=== PATIENT | male | born 1990 | race Caucasian/White ===

== ENCOUNTER 2016-09-06 19:11 | Emergency (ER) | payer BC ==
--- NOTE | 2016-09-06 20:51 | ED ORDER SUMMARY ---
..... Patient: MARGI LINN OrderSheet [facility] VisitID: [id number] [address] [place] [address] 26y, M Registration Date/Time: 09/06/2016 ORDER SHEET Weight: 117.9 kg (stated) Allergies: No Known Drug Allergy GENERAL ORDERS: Rapid Influenza Screen (Nasal Pharyngeal) (INFORMATION ASSURANCE ENGINEER swab) Urgent (20:13 09/06/2016 Shaista Fields verbal order read back to Can Mckeon) (20:22 [facility] ER Tech1) MEDICATION ORDERS: IV FLUIDS: ORDER SHEET NOTES: [Electronically signed by Ronel GrNOctavioPOctavio (21:35 09/06/2016)] [Electronically signed by Ayala Ding R.N. (23:46 09/06/2016)] [Electronically locked/signed by Ayala Ding R.N. (23:46 09/06/2016)]
--- NOTE | 2016-09-06 20:51 | ED CLINICAL REPORT ---
Clinical Report - Physicians/Mid Levels [facility] [address] [place] [address] 09/06/2016 19:14 Patient: MARGI LINN Time Seen: 20:14; initial patient contact, initial documentation, patient care assumed. Arrived- By private vehicle. Historian- patient. HISTORY OF PRESENT ILLNESS Chief Complaint: FEVER, MUSCLE ACHES and "FLU". This started yesterday and is still present. The illness is described as moderate. The patient has had a cough, nasal congestion, sinus pressure, fever of 101 F and muscle aches. He has had a nasal discharge. He has had scant amounts of thin, clear, yellow, white sputum. No difficulty breathing, chest discomfort, sore throat, sinus drainage or ear pain. Additional history - The patient has had contact with a sick individual. (roommate). No recent travel. Similar symptoms previously: None. Recent medical care: Not recently seen/assessed. REVIEW OF SYSTEMS No headache, vomiting or diarrhea. All systems otherwise negative, except as recorded above. PAST HISTORY See nurses notes. PROBLEMS: Viral Disease. --20:06 Ayala Ding R.N. ADDITIONAL SURGERIES: Adenoidectomy. Dental Surgery. Tonsillectomy. --20:06 Ayala Ding R.N. SOCIAL HISTORY Never smoker. Not exposed to second-hand smoke at home. No alcohol use or drug use. No recent travel. Is a local resident. FAMILY HISTORY Negative. ADDITIONAL NOTES The nursing notes have been reviewed with agreement regarding the chief complaint, HPI, ROS, PMH and patient medications and allergies. PHYSICAL EXAM Vital Signs: 09/06/2016 20:12 BP: 141/80. HR: 98. RR: 20. O2 saturation: 100%. Temp: 100.0 F. Have been reviewed as abnormal and appear to be correct. Blood pressure normal. Heart rate normal. Respiratory rate normal. Febrile. Oxygen saturation normal. Appearance: Alert. No acute distress. Eyes: Pupils equal, round and reactive to light. Eyes normal inspection. ENT: Ears normal. Nose normal. Pharynx normal. Uvula midline. Neck: Normal inspection. Neck supple. CVS: Normal heart rate and rhythm. Heart sounds normal. Pulses normal. Respiratory: No respiratory distress. Breath sounds normal. Back: Normal inspection. Skin: Skin warm and dry. Normal skin color. No rash. Normal skin turgor. Extremities: Extremities exhibit normal ROM. No lower extremity edema. Neuro: Oriented X 3. No motor deficit. No sensory deficit. LABS, X-RAYS, AND EKG Laboratory Tests: Rapid Influenza Screen: (JOSE MIGUEL: 09/06/2016 20:05) ( MsgRcvd 09/06/2016 20:41) Final results SPECIMEN DESCRIPTION: EMPLOYEE SERVICES MANAGER SWAB Test Result Flag Units (Reference) RAPID INFLUENZA SCREEN CALLED TO: CARMEN -- DATE: 09/06/16 INFLUENZA A: POSITIVE SCREEN FOR INFLUENZA A INFLUENZA B: NEGATIVE SCREEN FOR INFLUENZA B RAPID INFLUENZA "A" POSITIVE. . PROGRESS AND PROCEDURES Patient counseled in person regarding the patient's stable condition, test results and diagnosis. 20:51. Differential Diagnosis: Other possible considerations: flu, uri, viral illness, sinusitis, allergies, bronchitis, pneumonia. Above considerations are based on history and physical exam. Differential diagnosis was discussed with patient. Disposition: Discharged home in good and improved condition (20:51). Condition: good and stable. CLINICAL IMPRESSION Influenza type A with upper respiratory infection. Acute viral rhinitis. No airway obstruction. INSTRUCTIONS Alternate Tylenol (Acetaminophen) and Motrin (Ibuprofen) for fever, temperature greater than 101 degrees orally. Take according to label instructions. Drink plenty of fluids. Warnings: GENERAL WARNINGS: Return or contact your physician immediately if your condition worsens or changes unexpectedly, if not improving as expected, or if other problems arise. Specifically return if problem worsens. Follow-up: Follow up with your doctor in about three days as needed. Call for an appointment. Summary of care provided to patient. Understanding of the discharge instructions verbalized by patient. (Electronically signed by Ronel Gr A.R.N.P. 09/06/2016 21:35)
--- NOTE | 2016-09-06 20:51 | ED NURSING NOTES ---
Clinical Report - Nurses [place] [address] [place] [address] 09/06/2016 19:14 Patient: MARGI LINN TRIAGE Triage time 20:Sep 06 2016. Chief Complaint: FEVER and "NOT FEELING WELL". 20:07 09/06/16. --20:07 Ayala Ding R.N. Acuity: LEVEL 4. --20:13 Ayala Ding R.N. 20:12 09/06/16. BP: 141/80. HR: 98. RR: 20. O2 saturation: 100%. Temp: 100.0 F. Pain level now 5/10. --20:13 Ayala Ding R.N. SEPSIS SCREEN: Sepsis Screen. Negative (no infection suspected/documented). RALEIGH COMA SCORE: [place] Coma Scale: 15- eyes open spontaneously (4); best verbal response- oriented x 4 (5); best motor response- obeys commands (6). --20:13 Ayala Ding R.N. Weight: 117.9 kg stated. Height/Length: 72 inches Per Patient. BMI: 35.3. --20:05 Ayala Ding R.N. Medications None. --20:06 Ayala Ding R.N. Allergies No Known Drug Allergy. --20:06 Ayala Ding R.N. History Arrived by private vehicle. Historian: patient. Accompanied by friend. This started yesterday. PAST MEDICAL HX: Has not received seasonal influenza immunization. SOCIAL HX: Never smoker. No alcohol use or drug use. No recent travel. He has had contact with a sick family member. No infectious disease exposure. ABUSE ASSESSMENT: No report of abuse. --20:07 Ayala Ding R.N. Treatment BLEACHER LARD: (sudafed, last dose at 15:50 today). PAST MEDICAL HX: Has not received seasonal influenza immunization. --20:13 Ayala Ding R.N. PROBLEMS: Viral Disease. --20:06 Ayala Ding R.N. ADDITIONAL SURGERIES: Adenoidectomy. Dental Surgery. Tonsillectomy. --20:06 Ayala Ding R.N. Interventions ID band on patient. --20:13 Ayala Ding R.N. PHYSICAL ASSESSMENT 20:09/06/16. Ambulatory to room. GENERAL / NEURO / PSYCH: Alert. Oriented X 4. HEENT: Pupils equal, round and reactive to light. Mucous membranes are pink. RESPIRATORY: Respirations not labored. Chest nontender. Breath sounds within normal limits. CVS: Capillary refill less than 2 seconds. Pulses within normal limits. GI / : Abdomen soft and nontender and normal bowel sounds. SKIN: Skin intact. Skin is warm and dry. Normal skin turgor. --20:14 Ayala Ding R.N. NURSING PROGRESS NOTES 20:09/06/16. The plan of care for this patient includes an assessment with efforts to address the presence of pain. This plan of care was discussed with the patient. Patient gowned. Reassurance given. Two patient identifiers checked. Call light placed in reach. Side rails up x 1. Bed placed in lowest position. Brakes of bed on. Patient ready for evaluation. --20:15 Ayala Ding R.N. 20:08 09/06/16. Patient ID band checked for patient name and birthdate: patient confirmed. Flu swab obtained by RN via nasal pharyngeal swab. Labeled in the presence of the patient and sent to lab. --20:15 Ayala Dign R.N. DISPOSITION / DISCHARGE 21:02 09/06/16. Condition at departure: improved and stable. No learning barriers present. Patient verbalized understanding. Written instructions provided in Latvian. The patient was discharged home and accompanied by manager army. He left the Emergency Department ambulatory and via private vehicle. Side Show Entertainer driving. FALL RISK ASSESSMENT: Fall risk assessment completed. No fall risk identified. --21:02 Ayala Ding R.N. 20:12 09/06/16. BP: 141/80. HR: 98. RR: 20. O2 saturation: 100%. Temp: 100.0 F. Pain level now 01/10. --21:02 Ayala Ding R.N. Departure time: 21:Sep 06 2016. --21:02 Ayala Ding R.N. Locked/Released at 09/06/2016 23:46 by Ayala Ding R.N.
--- NOTE | 2016-09-06 20:51 | ED CLINICAL REPORT ---
Clinical Report - Physicians/Mid Levels [facility] [address] [place] [address] 09/06/2016 19:14 Patient: MARGI LINN Time Seen: 20:14; initial patient contact, initial documentation, patient care assumed. Arrived- By private vehicle. Historian- patient. HISTORY OF PRESENT ILLNESS Chief Complaint: FEVER, MUSCLE ACHES and "FLU". This started yesterday and is still present. The illness is described as moderate. The patient has had a cough, nasal congestion, sinus pressure, fever of 101 F and muscle aches. He has had a nasal discharge. He has had scant amounts of thin, clear, yellow, white sputum. No difficulty breathing, chest discomfort, sore throat, sinus drainage or ear pain. Additional history - The patient has had contact with a sick individual. (roommate). No recent travel. Similar symptoms previously: None. Recent medical care: Not recently seen/assessed. REVIEW OF SYSTEMS No headache, vomiting or diarrhea. All systems otherwise negative, except as recorded above. PAST HISTORY See nurses notes. PROBLEMS: Viral Disease. --20:06 Ayala Ding R.N. ADDITIONAL SURGERIES: Adenoidectomy. Dental Surgery. Tonsillectomy. --20:06 Ayala Ding R.N. SOCIAL HISTORY Never smoker. Not exposed to second-hand smoke at home. No alcohol use or drug use. No recent travel. Is a local resident. FAMILY HISTORY Negative. ADDITIONAL NOTES The nursing notes have been reviewed with agreement regarding the chief complaint, HPI, ROS, PMH and patient medications and allergies. PHYSICAL EXAM Vital Signs: 09/06/2016 20:12 BP: 141/80. HR: 98. RR: 20. O2 saturation: 100%. Temp: 100.0 F. Have been reviewed as abnormal and appear to be correct. Blood pressure normal. Heart rate normal. Respiratory rate normal. Febrile. Oxygen saturation normal. Appearance: Alert. No acute distress. Eyes: Pupils equal, round and reactive to light. Eyes normal inspection. ENT: Ears normal. Nose normal. Pharynx normal. Uvula midline. Neck: Normal inspection. Neck supple. CVS: Normal heart rate and rhythm. Heart sounds normal. Pulses normal. Respiratory: No respiratory distress. Breath sounds normal. Back: Normal inspection. Skin: Skin warm and dry. Normal skin color. No rash. Normal skin turgor. Extremities: Extremities exhibit normal ROM. No lower extremity edema. Neuro: Oriented X 3. No motor deficit. No sensory deficit. LABS, X-RAYS, AND EKG Laboratory Tests: Rapid Influenza Screen: (JOSE MIGUEL: 09/06/2016 20:05) ( MsgRcvd 09/06/2016 20:41) Final results SPECIMEN DESCRIPTION: PLATE MOLDER SWAB Test Result Flag Units (Reference) RAPID INFLUENZA SCREEN CALLED TO: CARMEN -- DATE: 09/06/16 INFLUENZA A: POSITIVE SCREEN FOR INFLUENZA A INFLUENZA B: NEGATIVE SCREEN FOR INFLUENZA B RAPID INFLUENZA "A" POSITIVE. . PROGRESS AND PROCEDURES Patient counseled in person regarding the patient's stable condition, test results and diagnosis. 20:51. Differential Diagnosis: Other possible considerations: flu, uri, viral illness, sinusitis, allergies, bronchitis, pneumonia. Above considerations are based on history and physical exam. Differential diagnosis was discussed with patient. Disposition: Discharged home in good and improved condition (20:51). Condition: good and stable. CLINICAL IMPRESSION Influenza type A with upper respiratory infection. Acute viral rhinitis. No airway obstruction. INSTRUCTIONS Alternate Tylenol (Acetaminophen) and Motrin (Ibuprofen) for fever, temperature greater than 101 degrees orally. Take according to label instructions. Drink plenty of fluids. Warnings: GENERAL WARNINGS: Return or contact your physician immediately if your condition worsens or changes unexpectedly, if not improving as expected, or if other problems arise. Specifically return if problem worsens. Follow-up: Follow up with your doctor in about three days as needed. Call for an appointment. Summary of care provided to patient. Understanding of the discharge instructions verbalized by patient. (Electronically signed by Ronel Gr A.R.N.P. 09/06/2016 21:35)
--- NOTE | 2016-09-06 20:51 | ED ORDER SUMMARY ---
..... Patient: MARGI LINN OrderSheet [facility] VisitID: [id number] [address] [place] [address] 26y, M Registration Date/Time: 09/06/2016 ORDER SHEET Weight: 117.9 kg (stated) Allergies: No Known Drug Allergy GENERAL ORDERS: Rapid Influenza Screen (Nasal Pharyngeal) (LPN CARE MANAGER swab) Urgent (20:13 09/06/2016 Shaista Fields verbal order read back to Can Mckeon) (20:22 [facility] ER Tech1) MEDICATION ORDERS: IV FLUIDS: ORDER SHEET NOTES: [Electronically signed by Ronel GrNOctavioPOctavio (21:35 09/06/2016)] [Electronically signed by Ayala Ding R.N. (23:46 09/06/2016)] [Electronically locked/signed by Ayala Ding R.N. (23:46 09/06/2016)]
--- NOTE | 2016-09-06 20:51 | ED NURSING NOTES ---
Clinical Report - Nurses [place] [address] [place] [address] 09/06/2016 19:14 Patient: MARGI LINN TRIAGE Triage time 20:Sep 06 2016. Chief Complaint: FEVER and "NOT FEELING WELL". 20:07 09/06/16. --20:07 Ayala Ding R.N. Acuity: LEVEL 4. --20:13 Ayala Ding R.N. 20:12 09/06/16. BP: 141/80. HR: 98. RR: 20. O2 saturation: 100%. Temp: 100.0 F. Pain level now 5/10. --20:13 Ayala Ding R.N. SEPSIS SCREEN: Sepsis Screen. Negative (no infection suspected/documented). RALEIGH COMA SCORE: [place] Coma Scale: 15- eyes open spontaneously (4); best verbal response- oriented x 4 (5); best motor response- obeys commands (6). --20:13 Ayala Ding R.N. Weight: 117.9 kg stated. Height/Length: 72 inches Per Patient. BMI: 35.3. --20:05 Ayala Ding R.N. Medications None. --20:06 Ayala Ding R.N. Allergies No Known Drug Allergy. --20:06 Ayala Ding R.N. History Arrived by private vehicle. Historian: patient. Accompanied by friend. This started yesterday. PAST MEDICAL HX: Has not received seasonal influenza immunization. SOCIAL HX: Never smoker. No alcohol use or drug use. No recent travel. He has had contact with a sick family member. No infectious disease exposure. ABUSE ASSESSMENT: No report of abuse. --20:07 Ayala Ding R.N. Treatment TECHNICIAN TERMINAL AND REPEATER: (sudafed, last dose at 15:50 today). PAST MEDICAL HX: Has not received seasonal influenza immunization. --20:13 Ayala Ding R.N. PROBLEMS: Viral Disease. --20:06 Ayala Ding R.N. ADDITIONAL SURGERIES: Adenoidectomy. Dental Surgery. Tonsillectomy. --20:06 Ayala Ding R.N. Interventions ID band on patient. --20:13 Ayala Ding R.N. PHYSICAL ASSESSMENT 20:09/06/16. Ambulatory to room. GENERAL / NEURO / PSYCH: Alert. Oriented X 4. HEENT: Pupils equal, round and reactive to light. Mucous membranes are pink. RESPIRATORY: Respirations not labored. Chest nontender. Breath sounds within normal limits. CVS: Capillary refill less than 2 seconds. Pulses within normal limits. GI / : Abdomen soft and nontender and normal bowel sounds. SKIN: Skin intact. Skin is warm and dry. Normal skin turgor. --20:14 Ayala Ding R.N. NURSING PROGRESS NOTES 20:09/06/16. The plan of care for this patient includes an assessment with efforts to address the presence of pain. This plan of care was discussed with the patient. Patient gowned. Reassurance given. Two patient identifiers checked. Call light placed in reach. Side rails up x 1. Bed placed in lowest position. Brakes of bed on. Patient ready for evaluation. --20:15 Ayala Ding R.N. 20:08 09/06/16. Patient ID band checked for patient name and birthdate: patient confirmed. Flu swab obtained by RN via nasal pharyngeal swab. Labeled in the presence of the patient and sent to lab. --20:15 Ayala Ding R.N. DISPOSITION / DISCHARGE 21:02 09/06/16. Condition at departure: improved and stable. No learning barriers present. Patient verbalized understanding. Written instructions provided in Swedish. The patient was discharged home and accompanied by animal control specialist. He left the Emergency Department ambulatory and via private vehicle. Warehouse Shipping Associate driving. FALL RISK ASSESSMENT: Fall risk assessment completed. No fall risk identified. --21:02 Ayala Ding R.N. 20:12 09/06/16. BP: 141/80. HR: 98. RR: 20. O2 saturation: 100%. Temp: 100.0 F. Pain level now 01/10. --21:02 Ayala Ding R.N. Departure time: 21:Sep 06 2016. --21:02 Ayala Ding R.N. Locked/Released at 09/06/2016 23:46 by Ayala Ding R.N.
--- NOTE | 2016-09-06 23:47 | ED DISCHARGE INSTRUCTIONS ---
Patient: MARGI LINN General Instructions [facility] VisitID: [id number] [place] [address] 26y, M Registration Date/Time: 09/06/2016 Influenza type A with upper respiratory infection. Acute viral rhinitis. No airway obstruction. INSTRUCTIONS Alternate Tylenol (Acetaminophen) and Motrin (Ibuprofen) for fever, temperature greater than 101 degrees orally. Take according to label instructions. Drink plenty of fluids. Warnings: GENERAL WARNINGS: Return or contact your physician immediately if your condition worsens or changes unexpectedly, if not improving as expected, or if other problems arise. Specifically return if problem worsens. Follow-up: Follow up with your doctor in about three days as needed. Call for an appointment. Summary of care provided to patient. Understanding of the discharge instructions verbalized by patient. ADDITIONAL INFORMATION Viral Respiratory Illness [Adult] You have an Upper Respiratory Illness (URI) caused by a virus. This illness is contagious during the first few days. It is spread through the air by coughing and sneezing or by direct contact (touching the sick person and then touching your own eyes, nose or mouth). Most viral illnesses go away within 7-10 days with rest and simple home remedies. Sometimes, the illness may last for several weeks. Antibiotics will not kill a virus and are generally not prescribed for this condition. Home Care: 1) If symptoms are severe, rest at home for the first 2-3 days. When you resume activity, don't let yourself get too tired. 2) Avoid being exposed to cigarette smoke (yours or others). 3) Tylenol (acetaminophen) or ibuprofen (Advil, Motrin) will help fever, muscle aching and headache. (Persons under 18 with fever should not take aspirin since this may cause liver damage.) 4) Your appetite may be poor, so a light diet is fine. Avoid dehydration by drinking 6-8 glasses of fluids per day (water, soft drinks, juices, tea, soup). Extra fluids will help loosen secretions in the nose and lungs. 5) Chfl-oyo-qygzlnw cold medicines will not shorten the length of time youre sick, but they may be helpful for the following symptoms: cough (Robitussin DM); sore throat (Chloraseptic lozenges or spray); nasal and sinus congestion (Actifed, Sudafed, Chlortrimeton). Follow Up with your doctor or as advised if you dont improve over the next week. Get Prompt Medical Attention if any of the following occur: -- Cough with lots of colored sputum (mucus) or blood in your sputum -- Chest pain, shortness of breath, wheezing or have trouble breathing -- Severe headache; face, neck or ear pain -- Fever over 100.4 F (38.0 C) for more than three days -- You cant swallow due to throat pain Influenza (Adult) Influenza, also called the flu, is a viral illness that affects the air passages of the lungs. It differs from the common cold. It is highly contagious. It may be spread through the air by coughing and sneezing or by direct contact (touching the sick person and then touching your own eyes, nose or mouth). Illness starts 1-3 days after exposure and lasts for 1-2 weeks. Antibiotics are usually not needed unless a complication appears (ear or sinus infection or pneumonia). Symptoms may be mild or severe and can include extreme tiredness (wanting to stay in bed all day), chills, fevers, muscle aching, soreness with eye movement, headache, and a dry, hacking cough. Home Care: Avoid exposure to cigarette smoke (yours or others). Tylenol or ibuprofen (Advil) will help fever, muscle aching, and headache. To avoid risk of liver injury, aspirin should not be used in children and teenagers under 18 with this illness. Nausea and loss of appetite are common. A light diet is recommended. Avoid dehydration by drinking 6-8 glasses of fluids per day (water, sport drinks like Gatorade, soft drinks without caffeine, juices, tea, soup, etc.). Extra fluids will also help loosen secretions in the nose and lungs. Qmyq-irl-lggpwhf cold medicines will not shorten the duration of the illness but may be helpful for the following symptoms: cough (Robitussin DM); sore throat (Chloraseptic lozenges or spray); nasal and sinus congestion (Actifed or Sudafed). [NOTE: Do not use decongestants if you have high blood pressure.] Stay home until your fever has been gone for at least 24 hours (without the use of fever-reducing medications such as ibuprofen). Follow Up with your doctor or as directed by our staff if you are not improving over the next week. Note: If you are age 65 or older, or if you have chronic asthma or COPD, we recommend a pneumococcal vaccinationevery five years. All adults shouldreceive a yearly influenza vaccination every . Ask your doctor about this. Get Prompt Medical Attention if any of the following occur: Cough with lots of colored sputum (mucus) or blood in your sputum Chest pain, shortness of breath, wheezing, or difficulty breathing Severe headache, face, neck or ear pain New rash Fever of 100.4F (38C) oral or higher, not better with fever medication Confusion, behavior change or seizure Severe weakness or dizziness Fever Control (Adult) A fever is a natural reaction of the body to an illness. In most cases, the temperature itself is not harmful. It actually helps the body fight infections. A fever does not need to be treated unless you feel very uncomfortable. Home Care If you feel warm, check your temperature. If you feel very uncomfortable and your temperature is at or higher than 100.4F (38C) oral, you may take acetaminophen (Tylenol) every 4 to 6 hours. If you cant take or keep down oral medicine, ask your pharmacist for Tylenol suppositories, which you can get without a prescription. If the fever does not respond to acetaminophen within 1 hour, take ibuprofen (Advil or Motrin). If this works, keep taking the ibuprofen every 6 to 8 hours. Note: If you have chronic liver or kidney disease or ever had a stomach ulcer or GI bleeding, talk with your doctor before using these medications. If either medication alone does not keep the fever down, you may alternate the two medicines every 3 to 4 hours, only if your healthcare provider has instructed you to do so. For example, take Motrin then wait 3 hours, take Tylenol then wait 3 hours, take Motrin, and so on. Follow your healthcare providers instructions exactly. Clothing: Keep clothing light because excess body heat is lost through the skin. The fever will go up if you wear extra layers or wrap in blankets. Fluids: Fever causes the body to lose water through evaporation. Drink plenty of fluids such as water, juice, clear sodas, bravo kristine, or lemonade. Do not use aspirin in anyone under 18 years of age who is ill with a fever. It can cause severe liver damage. Follow Up with your doctor or as advised by our staff if you do not get better after 48 hours. Get Prompt Medical Attention if any of the following occur: Fever does not get better after taking fever medication Fast or difficult breathing Earache, sinus pain, stiff or painful neck, headache, repeated diarrhea or vomiting You feel unusually irritable, drowsy, or confused A rash appears You feel weak or dizzy, or that you might faint You have been given the following additional information: Uri, Viral, No Abx (Adult) Influenza (Adult) Fever Control (Adult) (Electronically signed by Ronel Gr A.R.N.P. 09/06/2016 21:35)
--- NOTE | 2016-09-06 23:47 | ED MED RECONCILIATION SUMMARY ---
Patient: MARGI LINN Medication Reconciliation Report [facility] VisitID: [id number] [place] [address] 26y, M Registration Date/Time: 09/06/2016 Weight: 117.9 kg Height/Length: 72 in. BMI: 35.3 ALLERGIES: No Known Drug Allergy The patient's Home Medications are listed below: NONE. The source(s) of the original Home Medication information: Not obtained. The following Medications were given to the patient in the Emergency Department: None. The following Medications were prescribed to the patient: None.
--- NOTE | 2016-09-06 23:47 | ED MED RECONCILIATION SUMMARY ---
Patient: MARGI LINN Medication Reconciliation Report [facility] VisitID: [id number] [place] [address] 26y, M Registration Date/Time: 09/06/2016 Weight: 117.9 kg Height/Length: 72 in. BMI: 35.3 ALLERGIES: No Known Drug Allergy The patient's Home Medications are listed below: NONE. The source(s) of the original Home Medication information: Not obtained. The following Medications were given to the patient in the Emergency Department: None. The following Medications were prescribed to the patient: None.
--- NOTE | 2016-09-06 23:47 | ED MAR SUMMARY ---
..... Medication Administration Record [facility] [address] [place] [id number] Patient: MARGI LINN Visit ID: [id number] 26y, M Weight: 117.9 kg Height/Length: 72 in BMI: 35.3 ALLERGIES: No Known Drug Allergy
--- NOTE | 2016-09-06 23:47 | ED MAR SUMMARY ---
..... Medication Administration Record [place] [facility] [address] [place] [id number] Patient: MARGI LINN Visit ID: [id number] 26y, M Weight: 117.9 kg Height/Length: 72 in BMI: 35.3 ALLERGIES: No Known Drug Allergy
== END 2016-09-06 21:04 | disposition home or self-care (01) ==
LOC: ED SRH 19:11
DX: J11.1 Influenza due to unidentified influenza virus with other respiratory manifestations (principal)
CPT/HCPCS: 91400